=== PATIENT | male | born 1970 | race Caucasian/White ===

== ENCOUNTER 2020-07-19 08:08 | Emergency (ER) | payer OTHER ==
[2020-07-19] MEDS ORDERED: MORPHINE 4 MG/ML SYR ONE ×2 (08:36→11:23)
[2020-07-19] MEDS ORDERED: ONDANSETRON 4 MG/2 ML VIAL ONE (08:36)
[2020-07-19 08:45] LABS: Absolute Lymphocytes (CBC) 1.9 K/uL (0.7-4.9); Basophils % 1.1 % (0-1.3); Hematocrit 45.7 % (39.6-49.0); Lymphocytes % 32.2 % (15.3-44.8); MPV 9.1 fL (7.6-11.3); RBC Red Blood Cell Count 5.38 M/uL (4.33-5.43)
[2020-07-19 08:55] LABS: BUN Blood Urea Nitrogen 16 mg/dL (7-18); Bicarbonate 25 mmol/L (21-32); Glucose Level 109 mg/dL (74-106); Potassium 3.8 mmol/L (3.5-5.1); Sodium Level 142 mmol/L (136-145); Troponin (Emerg Dept Use Only) < 0.02 ng/mL (0.0-0.045)
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
[2020-07-19] MEDS ORDERED: KETOROLAC 30 MG/ML INJ ONE (11:23)
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
[2020-07-19 13:42] VITALS: TEMP 97.7
[2020-07-19 13:50] VITALS: BP 121/80; O2SAT 98
--- NOTE | 2020-07-20 07:07 | EKG ---
Test Date: 2020-07-19 Test Time: 08:37:20 Risk Compliance Manager: HAILEY MEASUREMENT RESULTS: Intervals: Rate: 70 CO: QRSD: 82 QT: 372 QTc: 401 [place]: P: CO: QRS: 54 T: 81 INTERPRETIVE STATEMENTS: Accelerated Junctional rhythm Nonspecific ST and T wave abnormality Abnormal ECG No previous ECG available for comparison Electronically Signed On 07-20-20 07:04:03 CDT by Kirk Negro
== END 2020-07-19 12:53 | disposition home or self-care (01) ==
LOC: ER 08:08
DX: S22.42XA Multiple fractures of ribs, left side, initial encounter for closed fracture (principal); W50.0XXA Accidental hit or strike by another person, initial encounter; Y93.89 Activity, other specified; Y92.89 Other specified places as the place of occurrence of the external cause; E78.5 Hyperlipidemia, unspecified
CPT/HCPCS: 93005; 85025; 80048; 36415; 84484; 71260; 71045; 96375; 96374; 99285; Q9967; J2405